=== PATIENT | male | born 1970 | race Caucasian/White ===

== ENCOUNTER 2022-05-26 15:05 | Emergency (ER) | payer SELFPAY ==
[2022-05-26] MEDS ORDERED: Magnesium Oxide 400 MG Tab PO ONE (18:02)
[2022-05-26] MEDS ORDERED: Potassium Chloride 20 MEQ Tab.ER PO ONE (18:02)
[2022-05-26] MEDS ORDERED: Metoprolol Succinate 25 MG Tab.ER PO ONE (18:54)
== END 2022-05-26 19:30 | disposition home or self-care (01) ==
LOC: JD.ED 15:05
DX: I47.1 Supraventricular tachycardia (principal); Z72.0 Tobacco use; Z95.0 Presence of cardiac pacemaker
CPT/HCPCS: 36415; 71045; 80053; 83735; 84484; 85025; 85610; 85730; 93005; 99285; A9270